=== PATIENT | female | born 1975 | race Caucasian/White ===

== ENCOUNTER → 2019-12-13 | Outpatient (CLI) | payer BC ==
[2019-12-13 14:53] VITALS: BP 137/89; PULSE 83; RESP 18; TEMP 98.3
--- NOTE | 2019-12-13 15:55 | P.HPOB ---
History of Present Illness H&P Date: 12/13/19 Chief Complaint: The patient is here for her routine gynecologic exam. This is a 44-year-old with an LMP of 12/16/2019. The patient is here to establish with this office. It has been about 6 years since her last pelvic exam. The patient has not been using anything to prevent . The patient and her feels that it is likely that they are done with childbearing. The patient states her menstrual periods have been gradually getting heavier over the last couple of years. They are regular every month lasting 6 days with days 2 and 3 being quite heavy where she has to change her protection up to every 2 or 3 hours. She does have some cramping but this is tolerable and controlled with [id number] ibuprofen. She is otherwise without complaints. Review of Systems The patient's weight Fluctuated by plus or minus 10 pounds. She denies respiratory, cardiac, or GI problems. 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 History of Any Multi-Drug Resistant Organisms: None Reported Past Surgical History: Section Additional Past Surgical History / Comment(s): 4 sections that followed 5 vaginal deliveries. Past Psychological History: No Psychological Hx Reported Smoking Status: Never smoker Past Alcohol Use History: Occasional (One per week) Past Drug Use History: None Reported Additional History: She has been since 1993 and does not work outside the home. - Past Family History Mother Family Medical History: CVA/TIA Additional Family Medical History / Comment(s): Cerebral aneurysm. Father Family Medical History: Cancer Additional Family Medical History / Comment(s): Non-Hodgkin's lymphoma. Medications and Allergies Home Medications Medication Instructions Recorded Confirmed Type No Known Home Medications 12/13/19 12/13/19 History Allergies Allergy/AdvReac Type Severity Reaction Status Date / Time No Known Allergies Allergy Unverified 12/13/19 14:50 Exam Vital Signs Temp Pulse Resp BP Pulse Ox 12/13/19 14:51 98.3 F 83 18 137/89 100 Intake and Output 12/13/19 12/13/19 12/13/19 06:59 14:59 22:59 Other: Weight 88.451 kg Height 5 feet 8 inches, weight 195 pounds, BMI 29.6 This is a well-developed well-nourished white female who is alert and oriented times 3 in no acute distress. HEENT: Mildly enlarged thyroid gland approximately 1.5 times average size with no focal nodules and no tenderness. Otherwise unremarkable HEENT. NECK: Supple without mass or thyromegaly. CHEST AND LUNGS: Clear to auscultation. HEART: Regular rate and rhythm. BREASTS: Are without mass or discharge. AXILLARY EXAM: Negative for adenopathy. BACK: Negative for CVA tenderness. ABDOMEN: Soft, nontender, without palpable masses. PELVIC EXAM: Normal external genitalia. Cervix and vagina appear normal. There is no unusual discharge. There is no evidence of prolapse. The uterus is midposition, 8-10 week size and nontender. There are no palpable adnexal masses or tenderness. RECTAL EXAM: negative for mass or tenderness and is negative for occult blood. EXTREMITIES: Nontender. IMPRESSION: 1. 44-year-old female currently not actively preventing with a two- year history of menorrhagia mostly noted on days 2 and 3 of her cycle. 2. Normal gynecologic exam. PLAN: 1. Pap smear was performed. 2. Self breast awareness was discussed with the patient. 3. She states she has never had a mammogram done in the past. I have recommended baseline screening mammogram with mammograms every 1-2 years until age 50, then yearly thereafter. The order slip was given to the patient for this. 4. Blood tests will include CBC and TSH. The lab is now) the order slip was given for this and she will return for this. 5. We have discussed possible risks of in her situation. She understands the risk for chromosomal defects such as Down syndrome is increased and will continue to increase with increasing age. Her risk of getting will be decreasing, but she understands it is still possible initially is not actively preventing . We have also discussed the risk of placenta accreta with her history of 4 previous sections 6. We've had a long discussion regarding options with her menorrhagia. We have discussed options such as meclofenamate sodium, oral contraception, progestin IUD, endometrial ablation, and hysterectomy. Patient elected to proceed with a trial of meclofenamate sodium 100 mg by mouth 3 times a day when necessary for heavy menstrual flow days per cycle. The electronic prescription will be sent to my her pharmacy in [place]. If she is not noticing significant improvement in 3 months, she was instructed to call to set up a time to further discuss other options. The patient will keep a menstrual calendar. 7. She was advised to return in one year for her annual well woman exam and as needed.
--- NOTE | 2019-12-20 17:46 | P.PN ---
Progress Note - Text Progress Note Date: 12/20/19 OUTPATIENT FOLLOW-UP NOTE TEST(S)/RESULTS: Pap smear done on 12/13/2019 was negative. A shift in the vaginal luis antonio was noted suggestive of bacterial vaginosis. METHOD OF NOTIFICATION: She was notified by phone. PATIENT COMMENTS: The patient denies any symptoms such as vaginal discharge or odor. The patient has been using hot tub and pool frequently recently. DIAGNOSIS: Negative Pap smear. No symptoms of bacterial vaginosis. DISCUSSION: The patient was instructed to call if she is having symptoms such as vaginal discharge or odor. PLAN: The patient states she will have the blood work that was recommended done in the near future and she will also make an appointment for mammogram.
== END | disposition home or self-care (01) ==
LOC: WWCWWP 14:27
PROVIDERS: ATTEND Obstetrics & Gynecology
DX: Z53.9 Procedure and treatment not carried out, unspecified reason (principal)

== ENCOUNTER → 2019-12-29 | Outpatient (CLI) | payer BC ==
[2019-12-29 09:43] LABS: HCT 37.4 % (34.0-46.0); Hypochromasia Slight; MCH 26.8 pg (25.0-35.0); MCHC 32.2 g/dL (31.0-37.0); MCV 83.4 fL (80.0-100.0); Mean Platelet Volume 7.2; Platelet Count 297 k/uL (150-450); RBC 4.48 m/uL (3.80-5.40); RDW 14.4 % (11.5-15.5); WBC 6.8 k/uL (3.8-10.6)
== END | disposition home or self-care (01) ==
LOC: LABWHC1 08:37
PROVIDERS: ATTEND Obstetrics & Gynecology
DX: N92.0 Excessive and frequent menstruation with regular cycle (principal)
CPT/HCPCS: 36415; 84443; 85027

== ENCOUNTER → 2021-02-12 | Outpatient (CLI) | payer BC ==
[2021-02-12 13:04] VITALS: BP 145/72; PULSE 97; RESP 18; TEMP 98.8
--- NOTE | 2021-02-12 14:10 | P.HPOB ---
History of Present Illness H&P Date: 02/12/21 Chief Complaint: The patient is here for her routine gynecologic exam. This is a 46-year-old with an LMP of 01/04/2021. The patient has not been using anything to prevent . She and her state that they would be okay if she did get and that's why they have not been using anything to prevent . She continues to have problems with her menstrual periods. Her menstrual periods were regular up until November when they started becoming more unpredictable and she has had a couple of longer menstrual appears lasting 9 and 12 days. She continues to have heavy menstrual flow typically greatest on the days 2 and 3 of the cycle. She has to change her pads about every 2-3 hours on the heavy days. She denies any significant problems with dysmenorrhea. She denies hot flashes. She did use meclofenamate sodium during her menstrual periods for heavy menstrual flow up until about 2 months ago when her prescription ran out. She states it did help slightly but he still tended be fairly heavy. Review of Systems The patient has gained 15 pounds over the last year. She denies respiratory, cardiac, or G.I. problems. Past Medical History Past Medical History: Cancer Additional Past Medical History / Comment(s): Basal cell skin cancer on the face. 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 History of Any Multi-Drug Resistant Organisms: None Reported Past Surgical History: Section Additional Past Surgical History / Comment(s): 4 sections that followed 5 vaginal deliveries. Removal of basal cell skin cancer on the face. 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 - Past Family History Mother Family Medical History: CVA/TIA Additional Family Medical History / Comment(s): Cerebral aneurysm. Father Family Medical History: Cancer Additional Family Medical History / Comment(s): Non-Hodgkin's lymphoma. Medications and Allergies Home Medications Medication Instructions Recorded Confirmed Type Meclofenamate Sodium 100 mg PO TID PRN #30 capsule 12/13/19 02/12/21 Rx Allergies Allergy/AdvReac Type Severity Reaction Status Date / Time No Known Allergies Allergy Unverified 02/12/21 12:56 Exam Vital Signs Temp Pulse Resp BP Pulse Ox 02/12/21 12:57 98.8 F 97 18 145/72 100 Intake and Output 02/11/21 02/12/21 02/12/21 22:59 06:59 14:59 Other: Weight 95.254 kg Height 5 feet 7 inches, weight 210 pounds, BMI 32.9. This is a well-developed well-nourished white female who is alert and oriented times 3 in no acute distress. HEENT: Within normal limits. NECK: Supple without mass or thyromegaly. CHEST AND LUNGS: Clear to auscultation. HEART: Regular rate and rhythm. BREASTS: Are without mass or discharge. AXILLARY EXAM: Negative for adenopathy. BACK: Negative for CVA tenderness. ABDOMEN: Soft, nontender, without palpable masses. PELVIC EXAM: Normal external genitalia. Cervix and vagina appear normal. There is no unusual discharge. There is no evidence of prolapse. The uterus is midposition, slightly retroverted, multiparous nongravid size and nontender. Th ere are no palpable adnexal masses or tenderness. RECTAL EXAM: negative for mass or tenderness and is negative for occult blood. EXTREMITIES: Nontender. IMPRESSION: 1. 46-year-old female with menorrhagia and slight menstrual irregularity during the past 2 months. Mild improvement with meclofenamate sodium. 2. Elevated blood pressure today. PLAN: 1. She had a normal Pap smear on 12/13/2019 and Pap smear was deferred. 2. Self breast awareness was discussed with the patient. We have also discussed symptoms associated with inflammatory breast cancer. 3. I have recommended mammograms at least every 1-2 years until age 50, and then yearly after that. She has never had a mammogram. The order slip was given to the patient for this. 4. Pelvic ultrasound to further evaluate the menorrhagia and to check for uterine fibroids. 5. We have had a long discussion regarding options for her menorrhagia including meclofenamate sodium, oral contraception, endometrial ablation and hysterectomy. The patient is going to consider endometrial ablation. The ACOG FAQ handout on endometrial ablation was given to the patient. 6. She will resume using meclofenamate sodium 100 mg by mouth 3 times a day as needed for heavy menstrual flow. The electronic prescription will be sent to my her pharmacy in [place]. 7. Weight control is discussed with the patient. I have stressed the importa nce of good nutrition, regular meals, adequate fiber, and regular exercise. 8. The patient will keep a menstrual calendar. 9. She will call if she would like to proceed with endometrial ablation, or if worsening symptoms or problems. 10. She was advised to return in one year for her annual well woman exam and as needed.
== END ==
LOC: WWCWWP 12:40
PROVIDERS: ATTEND Obstetrics & Gynecology
DX: Z01.419 Encounter for gynecological examination (general) (routine) without abnormal findings (principal); N92.0 Excessive and frequent menstruation with regular cycle; R03.0 Elevated blood-pressure reading, without diagnosis of hypertension

== ENCOUNTER → 2021-03-14 | Outpatient (CLI) | payer BC ==
--- NOTE | 2021-03-15 11:04 | MM ---
Reason for exam: screening (asymptomatic). Baseline mammogram. History: Patient history of other cancer. Took hormonal contraceptives beginning at age 21. Physical Findings: Nurse did not find any significant physical abnormalities on exam. MG 3D Screening Mammo W/Cad Bilateral CC and MLO view(s) were taken. The breast tissue is heterogeneously dense. This may lower the sensitivity of mammography. There is no discrete abnormality. ASSESSMENT: Negative, BI-RAD 1 RECOMMENDATION: Routine screening mammogram of both breasts in 1 year.
== END | disposition home or self-care (01) ==
LOC: RADMAMWWP 10:24
PROVIDERS: ATTEND Obstetrics & Gynecology
DX: Z12.31 Encounter for screening mammogram for malignant neoplasm of breast (principal)
CPT/HCPCS: 77063; 77067

== ENCOUNTER 2022-06-11 09:36 | Emergency (ER) | payer BC ==
[2022-06-11 09:40] VITALS: RESP 18
[2022-06-11] MEDS ORDERED: KETOROLAC 15 MG/ML 1 ML VIAL IVP STA (09:59)
--- NOTE | 2022-06-11 10:07 | ED ---
Chest Pain HPI - General Chief Complaint: Chest Pain Stated Complaint: chest pain Time Seen by Provider: 06/11/22 09:50 Source: patient, RN notes reviewed Mode of arrival: ambulatory Limitations: no limitations - History of Present Illness Initial Comments: 47-year-old femalehistory of heart disease who presents with complaints of the onset of left-sided retrosternal chest pain starting around 6:30 this morning. States it's a tightness 3-4/10 severity is intermittent. She also has slight cough no fevers chills nausea vomiting sweats or other symptoms no history of early cardiac disease her family and other current complaints or modifying factors MD Complaint: chest pain - Related Data Home Medications Medication Instructions Recorded Confirmed Olmesartan [Benicar] 10 mg PO DAILY 06/11/22 06/11/22 Allergies Allergy/AdvReac Type Severity Reaction Status Date / Time No Known Allergies Allergy Verified 06/11/22 12:11 Review of Systems ROS Statement: Those systems with pertinent positive or pertinent negative responses have been documented in the HPI. ROS Other: All systems not noted in ROS Statement are negative. EKG Findings - EKG Results: EKG: interpreted by ERMD (EKG interpreted by nc sinus rhythm of 96. Interval 149 QRS duration 94 QT since QTC 339/[address]-T wave changes possible right ventricular conduction delay) Past Medical History Past Medical History: Cancer, Hypertension Additional Past Medical History / Comment(s): Basal cell skin cancer on the face. 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 History of Any Multi-Drug Resistant Organisms: None Reported Past Surgical History: Section Additional Past Surgical History / Comment(s): 4 sections that followed 5 vaginal deliveries. Removal of basal cell skin cancer on the face. Past Psychological History: No Psychological Hx Reported Smoking Status: Never smoker Past Alcohol Use History: Occasional Past Drug Use History: None Reported - Past Family History Mother Family Medical History: CVA/TIA Additional Family Medical History / Comment(s): Cerebral aneurysm. Father Family Medical History: Cancer Additional Family Medical History / Comment(s): Non-Hodgkin's lymphoma. General Exam - General Exam Comments Initial Comments: This is a well-developed well-nourished awake alert oriented 4 female Limitations: no limitations General appearance: alert, in no apparent distress Head exam: Present: atraumatic, normocephalic, normal inspection Eye exam: Present: normal appearance, PERRL, EOMI. Absent: scleral icterus, conjunctival injection, periorbital swelling ENT exam: Present: normal exam, mucous membranes moist Neck exam: Present: normal inspection, full ROM, other (No stridor JVD or bruits). Absent: tenderness, meningismus, lymphadenopathy Respiratory exam: Present: normal lung sounds bilaterally, chest wall tenderness (Tenderness palpation of left costosternal margin no step-off no crepitation this does seem to reproduce the patient's pain). Absent: respiratory distress, wheezes, rales, rhonchi, stridor Cardiovascular Exam: Present: regular rate, normal rhythm, normal heart sounds. Absent: systolic murmur, diastolic murmur, rubs, gallop, clicks GI/Abdominal exam: Present: soft, normal bowel sounds. Absent: distended, tenderness, guarding, rebound, rigid Extremities exam: Present: normal inspection, full ROM, normal capillary refill. Absent: tenderness, pedal edema, joint swelling, calf tenderness Back exam: Present: normal inspection Neurological exam: Present: alert, oriented X3, CN II-XII intact Psychiatric exam: Present: normal affect, normal mood Skin exam: Present: warm, dry, intact, normal color. Absent: rash Course Vital Signs 06/11/22 06/11/22 09:37 11:03 Temperature 98.2 F Pulse Rate 102 H 78 Respiratory 18 18 Rate Blood Pressure 149/91 129/68 O2 Sat by Pulse 99 100 Oximetry - Reevaluation(s) Reevaluation #1: 06/11/22 12:26 Reevaluation patient finds that she feels improved after IV Toradol. Chest Pain MDM - MDM Imaging interpreted by me no acute processes. I did discuss findings with the patient family she is feeling improved at this time the presentation appears be consistent with costochondritis and chest wall pain. She does have an appointment to see her doctor this afternoon I did recommend that she get outpatient stress test Was pt. sent in by a medical professional or institution (, PA, SAT INSTRUCTOR, urgent care, hospital, or halfway...) When possible be specific @ -No Did you speak to anyone other than the patient for history (EMS, parent, family, police, friend...)? What history was obtained from this source @ -No Did you review nursing and triage notes (agree or disagree)? Why? @ Yes and agree-I reviewed and agree with nursing and triage notes Were old charts reviewed (outside hosp., previous admission, EMS record, old EKG, old radiological studies, urgent care reports/EKG's, halfway records)? Report findings @ -No old charts were reviewed Differential Diagnosis (chest pain, altered mental status, abdominal pain women, abdominal pain men, vaginal bleeding, weakness, fever, dyspnea, syncope, headache, dizziness, GI bleed, back pain, seizure, CVA, palpatations, mental health)? @ Chest pain secondary to cardiac etiology, pulmonary etiology, chest wall pain-not applicable EKG interpreted by me (3pts min.). @ Yes as above-As above X-rays interpreted by me (1pt min.). @ Yes as above-None done CT interpreted by me (1pt min.). @ -None done U/S interpreted by me (1pt. min.). @ -None done What testing was considered but not performed or refused? (CT, X-rays, U/S, labs)? Why? @ -None What meds were considered but not given or refused? Why? @ -None Did you discuss the management of the patient with other professionals (professionals i.e. , PA, SAT INSTRUCTOR, lab, RT, psych nurse, social media manager, precision farming specialist, teacher, patrol officer, case manager specialist)? Give summary @ -No Was smoking cessation discussed for >3mins.? @ -No Was critical care preformed (if so, how long)? @ -No Were there social determinants of health that impacted care today? How? (Homelessness, low income, unemployed, alcoholism, drug addiction, transportation, low edu. Level, literacy, decrease access to med. care, longterm, rehab)? @ -No Was there de-escalation of care discussed even if they declined (Discuss DNR or withdrawal of care, Hospice)? DNR status @ -No What co-morbidities impacted this encounter? (DM, HTN, Smoking, COPD, CAD, Cancer, CVA, ARF, Chemo, Hep., AIDS, mental health diagnosis, sleep apnea, morbid obesity)? @ -None Was patient admitted / discharged? Hospital course, mention meds given and route, prescriptions, significant lab abnormalities, going to OR and other pertinent info. @ Patient is discharged with a follow-up appointment with her doctor today- hospital course Undiagnosed new problem with uncertain prognosis? @ -No Drug Therapy requiring intensive monitoring for toxicity (Heparin, Nitro, Insulin, Cardizem)? @ -No Were any procedures done? @ -No Diagnosis/symptom? @ Costochondritis, chest wall pain -default Acute, or Chronic, or Acute on Chronic? @ -default Uncomplicated (without systemic symptoms) or Complicated (systemic symptoms)? @ -default Side effects of treatment? @ -No Exacerbation, Progression, or Severe Exacerbation? @ -No Poses a threat to life or bodily function? How? (Chest pain, [place], OR, pneumonia, PE, COPD, DKA, ARF, appy, cholecystitis, CVA, Diverticulitis, Homicidal, Suicidal, threat to staff... and all critical care pts) @ -No Disposition Clinical Impression: Costochondritis, Chest wall syndrome Disposition: HOME SELF-CARE Condition: Good Instructions (If sedation given, give patient instructions): Costochondritis (ED) Is patient prescribed a controlled substance at d/c from ED?: No Referrals: Nonstaff,Physician [REFERRING] - 1-2 days Decision Date: 06/11/22 Decision Time: 12:29
[2022-06-11 10:08] LABS: Basophils # (A) 0.1 k/uL (0-0.2); Basophils % (A) 1 %; Eosinophils # (A) 0.1 k/uL (0-0.7); Eosinophils % (A) 2 %; HCT 38.9 % (34.0-46.0); HGB 13.4 gm/dL (11.4-16.0); Lymphocytes % (A) 17 %; MCH 29.5 pg (25.0-35.0); MCHC 34.5 g/dL (31.0-37.0); MCV 85.5 fL (80.0-100.0); Mean Platelet Volume 7.2; Monocytes # (A) 0.3 k/uL (0-1.0); Monocytes % (A) 6 %; Neutrophils # (A) 4.1 k/uL (1.3-7.7); Neutrophils % (A) 71 %; Platelet Count 265 k/uL (150-450); RBC 4.55 m/uL (3.80-5.40); RDW 13.5 % (11.5-15.5); WBC 5.8 k/uL (3.8-10.6)
[2022-06-11 10:20] LABS: ALT 15 U/L (4-34); AST 17 U/L (14-36); African American GFR (CKD) >90 (>60 ml/min/1.73 sqM); Albumin 4.3 g/dL (3.5-5.0); Alkaline Phosphatase 86 U/L (38-126); Anion Gap 6 mmol/L; Blood Urea Nitrogen 12 mg/dL (7-17); Calcium 9.7 mg/dL (8.4-10.2); Carbon Dioxide 24 mmol/L (22-30); Chloride 107 mmol/L (98-107); Glucose 122 mg/dL (74-99); Magnesium 1.9 mg/dL (1.6-2.3); Non-African American GFR(CKD) >90 (>60 ml/min/1.73 sqM); Potassium 4.2 mmol/L (3.5-5.1); Sodium 137 mmol/L (137-145); Total Bilirubin 0.7 mg/dL (0.2-1.3); Total Protein 6.9 g/dL (6.3-8.2)
[2022-06-11 10:24] LABS: Partial Thromboplastin Time 26.3 sec (22.0-30.0); Prothrombin Time 10.3 sec (9.0-12.0)
--- NOTE | 2022-06-11 10:53 | XR ---
EXAMINATION TYPE: XR chest 2V DATE OF EXAM: 06/11/2022 10:11 AM COMPARISON: Chest radiographs from 06/11/2022 TECHNIQUE: XR chest 2V Frontal and lateral views of the chest. CLINICAL INDICATION:Female, 47 years old with history of Chest Pain; FINDINGS: Lungs/Pleura: There is no evidence of pleural effusion, focal consolidation, or pneumothorax. Pulmonary vascularity: Unremarkable. Heart/mediastinum: Cardiomediastinal silhouette is unremarkable. Musculoskeletal: No acute osseous pathology. IMPRESSION: No acute cardiopulmonary disease/process.
[2022-06-11] MEDS ORDERED: MAG HYDROX/AL HYDROX/SIMETH 30 ML, HYOSCYAMINE ELIXIR 10 ML, LIDOCAINE VISCOUS 2% 10 ML PO STA ×3 (11:08)
[2022-06-11 12:53] VITALS: BP 133/69; PULSE 75; TEMP 97.9
== END 2022-06-11 12:48 | disposition home or self-care (01) ==
LOC: EC 09:36
DX: M94.0 Chondrocostal junction syndrome [Tietze] (principal); I10 Essential (primary) hypertension; Z79.899 Other long term (current) drug therapy
CPT/HCPCS: 36415; 93005; 80053; 83735; 84484; 85025; 85610; 85730; 71046; 99285; 96374; J1885